=== PATIENT | male | born 2000 | race Caucasian/White ===

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

== ENCOUNTER 2022-06-11 21:27 | Emergency (ER) | payer OTHER ==
[~2022-06-11] VITALS: Ht 170.2 cm; Wt 104.3 kg
[2022-06-11] MEDS ORDERED: PROPRANOLOL HCL10 MG PO (21:49)
[2022-06-11] MEDS ORDERED: VITAMIN D21250 MCG (21:49)
== END 2022-06-12 03:55 | disposition left against medical advice (07) ==
LOC: ED 21:27
DX: R45.851 Suicidal ideations (principal); R45.850 Homicidal ideations; Z20.822 Contact with and (suspected) exposure to COVID-19; Z87.891 Personal history of nicotine dependence; Z79.899 Other long term (current) drug therapy
CPT/HCPCS: 36415; 80053; 81003; 84443; 85025; 99284; G0480; U0003